=== PATIENT | female | born 1995 | race African-American/Black ===

== ENCOUNTER 2023-02-19 09:42 | Emergency (ER) | payer MEDICAID, OTHER ==
[~2023-02-19] VITALS: Ht 160 cm; Wt 58.0 kg
[~2023-02-19 09:42] MED LIST: PNV1TABL76 MT
[2023-02-19] MEDS ORDERED: ONDANSETRON 4MG ODT PO STA (11:47)
[2023-02-19] MEDS ORDERED: ACETAMINOPHEN 325MG TABLET PO STA (11:47)
[2023-02-19 11:54] LABS: CLARITY URINE CLEAR (CLEAR); COLOR URINE YELLOW (YELLOW); KETONES URINE TRACE (NEGATIVE); LEUKOCYTE ESTERASE URINE 2+ (NEGATIVE); NITRITE URINE NEGATIVE (NEGATIVE); OCCULT BLOOD URINE NEGATIVE (NEGATIVE); PH URINE 6.5 (4.5-8.0); PROTEIN URINE 1+ (NEGATIVE); SPECIFIC GRAVITY URINE 1.016 (1.005-1.030)
[2023-02-19] MEDS ORDERED: SODIUM CHLORIDE 0.9% 1,000 ML IV ONE (13:15)
[2023-02-19] MEDS ORDERED: CEFTRIAXONE 1GM PREMIX 50 ML IV NR (13:15)
[2023-02-19] MEDS ORDERED: ACET-2708 PO (14:34)
[2023-02-19] MEDS ORDERED: ONDA4TAB50 PO (14:34)
[2023-02-19] MEDS ORDERED: CEPH500C2 PO (14:34)
[2023-02-19 15:04] VITALS: BP 96/78
== END 2023-02-19 15:07 | disposition home or self-care (01) ==
LOC: ER 09:42
DX: N39.0 Urinary tract infection, site not specified (principal)
CPT/HCPCS: 81003; 87086; 96365; 99284; J0696; Q0162; Z7610